=== PATIENT | female | born 1985 | race American Indian/Alaskan Native ===

== ENCOUNTER 2016-10-10 22:02 | Emergency (ER) | payer MEDICAID, OTHER ==
[2016-10-10] MEDS ORDERED: PROVENTIL IH ONE ×2 (23:35→23:43)
[2016-10-10] MEDS ORDERED: ATROVENT IH ONE ×2 (23:35→23:43)
[2016-10-10] MEDS ORDERED: ZOFRAN ODT ONE (23:35)
[2016-10-10] MEDS ORDERED: ZOFRAN ODT PO ONE (23:49)
[2016-10-11 00:19] LABS: Basophils % (Auto) 0.9 % (0.0-1.8); Hematocrit 50.2 % (30.3-42.9); Hemoglobin 16.7 gm/dl (10.1-14.3); Mean Corpuscular HGB Conc 33 % (30-34); Mean Corpuscular Hemoglobin 26 pg (28-32); Mean Corpuscular Volume 78 fl (79-97); Platelet Count 227 K/mm3 (140-440); Red Blood Count 6.44 M/mm3 (3.65-5.03); Red Cell Distribution Width 13.2 % (13.2-15.2)
[2016-10-11 00:38] LABS: Anion Gap 24 mmol/L; BUN/Creatinine Ratio 21.66; Blood Urea Nitrogen 13 mg/dL (7-17); Calcium 10.2 mg/dL (8.4-10.2); Carbon Dioxide 19 mmol/L (22-30); Chloride 94.7 mmol/L (98-107); Glucose 151 mg/dL (65-100); Potassium 3.8 mmol/L (3.6-5.0); Sodium 134 mmol/L (137-145)
[2016-10-11] MEDS ORDERED: REGLAN IV ONE (01:29)
--- NOTE | 2016-10-11 01:31 | Emergency Department Report ---
ED General Adult HPI - General Chief complaint: Dyspnea/Respdistress Stated complaint: VOMITING, SHIORTNESS OF BREATH Time Seen by Provider: 10/11/16 01:21 Source: patient Mode of arrival: Ambulatory Limitations: No Limitations - History of Present Illness Initial comments: this is a 31 year old female previously unknown to me. she does not have a pmd she has a medical history of anxiety, On control patch, and sickle cell trait. The patient was diagnosed on Thursday with influenza/influenza-like illness, and Started on Tamiflu. Patient presents to the ER today complaining of shortness of breath, nausea and vomiting. Subjective fevers. Vomited 6-7 times, clear, nonbloody, nonbilious. No abdominal pain. Mild chest tightness and discomfort. Positive generalized tremulousness. She is not certain of her anxiety is acting up. She reports that she is not . Symptoms have been constant since Thursday. They have no exacerbating or relieving factors. -: Gradual Severity scale (0 -10): 10 Quality: aching Consistency: constant Improves with: rest Worsens with: movement Associated Symptoms: cough, shortness of breath, weakness - Related Data Home Medications Medication Instructions Recorded Confirmed Last Taken Tamiflu mg PO DAILY 10/11/16 Unknown Tessalon Perles 100 mg PO TID 10/11/16 10/11/16 Unknown Previous Rx's Medication Instructions Recorded Last Taken Type Ferrous Sulfate [Feosol 325 MG tab] 325 mg PO BID #60 tablet 05/16/15 Unknown Rx Ibuprofen [Motrin 800 MG tab] 800 mg PO Q6H PRN #30 tablet 05/16/15 Unknown Rx Albuterol Sulfate [Proair 90 mcg IH Q4HR PRN #2 aer.pow.ba 10/11/16 Unknown Rx Respiclick] Ondansetron [Zofran Odt] 4 mg PO QID PRN #20 tab.rapdis 10/11/16 Unknown Rx Allergies Allergy/AdvReac Type Severity Reaction Status Date / Time No Known Allergies Allergy Unverified 05/14/15 17:25 ED Review of Systems ROS: Stated complaint: VOMITING, SHIORTNESS OF BREATH Other details as noted in HPI Constitutional: fever, malaise, weakness Eyes: denies: vision change ENT: congestion Respiratory: shortness of breath Cardiovascular: dyspnea on exertion Gastrointestinal: vomiting Genitourinary: denies: dysuria Musculoskeletal: arthralgia, myalgia Skin: denies: lesions Neurological: weakness Psychiatric: anxiety ED Past Medical Hx - Past Medical History Hx Congestive Heart Failure: No Hx Diabetes: No Hx Deep Vein Thrombosis: No Hx Renal Disease: No Hx Sickle Cell Disease: Yes (Sickle cell trait) Hx Seizures: No Hx Psychiatric Treatment: Yes (Anxiety) Hx Asthma: No Hx COPD: No Hx HIV: No Additional medical history: Eczema - Surgical History Past Surgical History?: No - Social History Smoking Status: Never Smoker Substance Use Type: None - Medications Home Medications: Home Medications Medication Instructions Recorded Confirmed Last Taken Type Ferrous Sulfate [Feosol 325 MG tab] 325 mg PO BID #60 tablet 05/16/15 10/11/16 Unknown Rx Ibuprofen [Motrin 800 MG tab] 800 mg PO Q6H PRN #30 tablet 05/16/15 10/11/16 Unknown Rx Albuterol Sulfate [Proair 90 mcg IH Q4HR PRN #2 aer.pow.ba 10/11/16 Unknown Rx Respiclick] Ondansetron [Zofran Odt] 4 mg PO QID PRN #20 tab.rapdis 10/11/16 Unknown Rx Tamiflu mg PO DAILY 10/11/16 Unknown History Tessalon Perles 100 mg PO TID 10/11/16 10/11/16 Unknown History ED Physical Exam - General Limitations: No Limitations General appearance: alert, anxious - Head Head exam: Present: atraumatic, normocephalic - Eye Eye exam: Present: normal appearance, EOMI. Absent: nystagmus - ENT ENT exam: Present: normal exam, normal orophraynx, mucous membranes moist, normal external ear exam - Neck Neck exam: Present: normal inspection, full ROM. Absent: tenderness, meningismus - Respiratory Respiratory exam: Present: normal lung sounds bilaterally. Absent: respiratory distress, wheezes, rales, rhonchi, stridor, decreased breath sounds - Cardiovascular Cardiovascular Exam: Present: normal rhythm, tachycardia, normal heart sounds. Absent: systolic murmur, diastolic murmur, rubs, gallop - GI/Abdominal GI/Abdominal exam: Present: soft, normal bowel sounds. Absent: distended, tenderness, guarding, rebound, rigid, pulsatile mass - Extremities Exam Extremities exam: Present: normal inspection, full ROM, normal capillary refill. Absent: tenderness, pedal edema, joint swelling, calf tenderness - Back Exam Back exam: Present: normal inspection, full ROM. Absent: tenderness, CVA tenderness (R), CVA tenderness (L), muscle spasm, paraspinal tenderness, vertebral tenderness - Neurological Exam Neurological exam: Present: alert, oriented X3, other (Extraocular movements intact. Tongue midline. No facial droop. Facial sensation intact to light touch in the V1, V2, V3 distribution bilaterally. 5 and 5 strength in 4 extremities.. Sensation is intact to light touch in 4 extremities.). Absent: motor sensory deficit - Psychiatric Psychiatric exam: Present: anxious - Skin Skin exam: Present: warm, dry, intact, normal color. Absent: rash ED Course Vital Signs 10/10/16 10/11/16 10/11/16 23:27 02:25 02:38 Temperature 98.3 F Pulse Rate 104 H 114 H Respiratory 26 H 18 27 H Rate Blood Pressure 108/84 Blood Pressure 108/84 123/79 [Left] O2 Sat by Pulse 100 100 100 Oximetry 10/11/16 10/11/16 10/11/16 02:40 02:50 03:56 Temperature Pulse Rate 107 H 114 H 110 H Respiratory 17 12 19 Rate Blood Pressure Blood Pressure [Left] O2 Sat by Pulse 99 97 Oximetry 10/11/16 10/11/16 10/11/16 04:00 04:10 04:20 Temperature Pulse Rate 105 H 97 H 96 H Respiratory 13 22 22 Rate Blood Pressure Blood Pressure [Left] O2 Sat by Pulse Oximetry - Reevaluation(s) Reevaluation #1: 10/11/16 02:17 differential diagnosis: Influenza, influenza-like illness, pneumonia, pneumonitis, nausea and vomiting secondary to Tamiflu medication, anxiety, pulmonary embolus, dehydration, congestive heart failure, cardiomyopathy Assessment and plan: 31-year-old female with recent onset of influenza and influenza-like illness with nausea and vomiting, weakness, tachycardia, tremulousness, and shortness of breath. Lung sounds are clear to auscultation, she is saturating well, there are no crackles or rales, and she is not hypoxic. Therefore I think pneumonitis, pneumonia, reactive airway disease, congestive heart failure, cardiomyopathy are very unlikely. She is quite tachycardic, I think that this is a combination of anxiety and dehydration. Nevertheless, she has control implant, otherwise has no other pulmonary embolus or DVT risk factors. IV fluids, nausea medication, test ordered. D-dimer is ordered. We will reassess after initial data points. I don't believe she requires nebulizer therapy at this time. 10/11/16 02:18 Reevaluation #2: 10/11/16 04:48 The patient is reassessed. She is able to ambulate without desaturation. She feels clinically improved. Symptoms present for greater than 8 hours. I doubt acute coronary syndrome given constitutional symptoms. D-dimer is negative. Tachycardia resolved. Patient can follow up with outpatient primary care and/ or cardiology. She will be discharged at this time. Return precautions reviewed. ED Medical Decision Making - Lab Data Result diagrams: 10/11/16 00:06 10/11/16 00:06 Vital Signs 10/10/16 23:27 Temperature 98.3 F Pulse Rate 104 H Respiratory 26 H Rate Blood Pressure 108/84 Blood Pressure 108/84 [Left] O2 Sat by Pulse 100 Oximetry Temp Pulse Resp BP Pulse Ox 98.3 F 104 H 26 H 108/84 100 10/10/16 23:27 10/10/16 23:27 10/10/16 23:27 10/10/16 23:27 10/10/16 23:27 Lab Results 10/11/16 10/11/16 Range/Units 00:06 00:06 WBC 4.0 L (4.5-11.0) K/mm3 RBC 6.44 H (3.65-5.03) M/mm3 Hgb 16.7 H (10.1-14.3) gm/dl Hct 50.2 H (30.3-42.9) % MCV 78 L (79-97) fl MCH 26 L (28-32) pg MCHC 33 (30-34) % RDW 13.2 (13.2-15.2) % Plt Count 227 (140-440) K/mm3 Lymph % (Auto) 39.8 H (13.4-35.0) % Custer % (Auto) 11.5 H (0.0-7.3) % Eos % (Auto) 0.0 (0.0-4.3) % Baso % (Auto) 0.9 (0.0-1.8) % Lymph # 1.6 (1.2-5.4) K/mm3 Custer # 0.5 (0.0-0.8) K/mm3 Eos # 0.0 (0.0-0.4) K/mm3 Baso # 0.0 (0.0-0.1) K/mm3 Seg Neutrophils % 47.8 (40.0-70.0) % Seg Neutrophils # 1.9 (1.8-7.7) K/mm3 Sodium 134 L (137-145) mmol/L Potassium 3.8 (3.6-5.0) mmol/L Chloride 94.7 L (98-107) mmol/L Carbon Dioxide 19 L (22-30) mmol/L Anion Gap 24 mmol/L BUN 13 (7-17) mg/dL Creatinine 0.6 L (0.7-1.2) mg/dL Estimated GFR > 60 ml/min BUN/Creatinine Ratio 21.66 % Glucose 151 H (65-100) mg/dL Calcium 10.2 (8.4-10.2) mg/dL Troponin T < 0.010 (0.00-0.029) ng/mL - EKG Data -: EKG Interpreted by Co EKG shows normal: sinus rhythm Rate: tachycardia - EKG Data When compared to previous EKG there are: previous EKG unavailable 10/11/16 02:20 sinus tachycardia, 129 bpm, normal axis, QTC 462 ms, not morphologically consistent with STEMI, there is no prior EKG available for comparison. - Radiology Data Radiology results: report reviewed, image reviewed X-ray of the chest is negative for acute disease. Critical care attestation.: If time is entered above; I have spent that time in minutes in the direct care of this critically ill patient, excluding procedure time. ED Disposition Clinical Impression: Dyspnea Disposition: DISCHARGED TO HOME OR SELFCARE Is pt being admited?: No Does the pt Need Aspirin: No Condition: Stable Instructions: Influenza (ED) Additional Instructions: Take deep breathing medications and nausea medications as directed. Follow up with a primary care doctor within the next week. Return to the ER right away with new pain, worsened pain, migration of pain, intractable nausea or vomiting , inability to tolerate liquid feeds. Dr. Padilla is a local primary care doctor. Alternatively, he may follow up with either the listed trade show specialist. Prescriptions: Albuterol Sulfate [Proair Respiclick] 90 mcg IH Q4HR PRN #2 aer.pow.ba PRN Reason: Wheezing Ondansetron [Zofran Odt] 4 mg PO QID PRN #20 tab.rapdis PRN Reason: Nausea Referrals: PRIMARY CARE, [Primary Care Provider] - 3-5 Days TAD PADILLA MD [Staff Physician] - 3-5 Days LEE KWON MD [Staff Physician] - 3-5 Days LUIS ARMANDO PRESSLEY MD [Staff Physician] - 3-5 Days
--- NOTE | 2016-10-11 01:39 | XRay Report ---
FINAL REPORT PROCEDURE: XR CHEST ROUTINE 2V TECHNIQUE: A portable AP chest radiograph was obtained at 10/10/2016 23:52 (EST) . CPT 86461 HISTORY: Shortness of breath COMPARISON: No prior studies are available for comparison. FINDINGS: Heart: Normal. Mediastinum/Vessels: Normal. Lungs/Pleural space: Normal. Bony thorax: No acute osseous abnormality. Life support devices: None. IMPRESSION: No acute cardiopulmonary abnormality.
[2016-10-11] MEDS ORDERED: NACL 0.9% 500 ML IV SCH (02:00)
[2016-10-11 02:46] LABS: INR 1.01 (0.87-1.13)
[2016-10-11 02:56] VITALS: BP 123/79
[2016-10-11] MEDS ORDERED: VALIUM IV ONE (03:06)
[2016-10-11] MEDS ORDERED: NACL 0.9% 1000 ML 1,000 ML ONE (03:38)
== END 2016-10-11 05:26 | disposition home or self-care (01) ==
LOC: ED 22:02
DX: R06.09 Other forms of dyspnea (principal); F41.9 Anxiety disorder, unspecified; D57.1 Sickle-cell disease without crisis
CPT/HCPCS: 36415; 71020; 80048; 82550; 83735; 83880; 84484; 84702; 85025; 85379; 85610; 93005; 93010; 96374; 96375; 99284; J2765; J3360; J7030; J7040; Q0162